=== PATIENT | female | born 1955 | race Caucasian/White ===

== ENCOUNTER 2020-12-26 19:30 | Inpatient (IN) | payer MEDICARE, OTHER ==
[~2020-12-26] VITALS: Ht 152.4 cm; Wt 108.8 kg
--- NOTE | 2020-12-26 19:34 | PHYS DOC ---
Past History Past Medical History: Anxiety, Arthritis, CAD, COPD, Diabetes, High Cholesterol, Heart Disease, Hypertension Past Surgical History: Angioplasty General Adult HPI: HPI: ".. I just ... can't catch... my breath... I... got .... COPD..... normally.... only need two ....of oxygen.... at night..... visiting... from [place]...........getting worse.....last three days... Patient is a 65 year old female who presents with above hx and complaints of dyspnea. [facility] for possible cardiac evaluation. Patient extremely dyspneic on arrival. Has had a breathing treatment prior. Patient [id number] advised patient had been getting worse the last 3 days. Increased dyspnea and fatigue. Patient does have home oxygen which he uses 2 L at night. Recent travel from [facility] to visit with son and [id number] here in [place]. Patient denies any specific ill contacts. No recent changes in meds. Patient has past history of COPD, CHF and coronary artery disease with a stent 20 years ago. Patient has history of hypertension, diabetes and dysrhythmia in the past. No ill family members at [place]. Review of Systems: Review of Systems: Constitutional: Denies fever or chills Eyes: Denies change in visual acuity HENT: Denies nasal congestion or sore throat Respiratory: Complains of cough and shortness of breath Cardiovascular: Complaints of chest pain and ankle edema GI: Denies abdominal pain, nausea, vomiting, bloody stools or diarrhea : Denies dysuria Musculoskeletal: Denies back pain or joint pain Integument: Denies rash Neurologic: Denies headache, focal weakness or sensory changes Endocrine: Denies polyuria or polydipsia Lymphatic: Denies swollen glands Psychiatric: Denies depression or anxiety Family History: Family History: Noncontributory to presentation Current Medications: Current Meds: See nursing for home meds Allergies: Allergies: No known drug allergies Physical Exam: PE: Constitutional: Well developed, well nourished, no acute distress, non-toxic appearance. [] HENT: Normocephalic, atraumatic, bilateral external ears normal, oropharynx moist, no oral exudates, nose normal. [] Eyes: PERRLA, EOMI, conjunctiva normal, no discharge. [] Neck: Normal range of motion, no tenderness, supple, no stridor. [] Cardiovascular:Heart rate regular rhythm, no murmur [] Lungs & Thorax: Bilateral breath sounds clear to auscultation [] Abdomen: Bowel sounds normal, soft, no tenderness, no masses, no pulsatile masses. [] Skin: Warm, dry, no erythema, no rash. [] Back: No tenderness, no CVA tenderness. [] Extremities: No tenderness, no cyanosis, no clubbing, ROM intact, no edema. [] Neurologic: Alert and oriented X 3, normal motor function, normal sensory function, no focal deficits noted. [] Psychologic: Affect normal, judgement normal, mood normal. [] EKG: EKG: My interpretation EKG shows a sinus rhythm at 75 bpm. Does have a slightly prolonged QT interval at 430 ms and a QTC area interval at 483 ms. No findings of acute STEMI of contralateral changes. [] Radiology/Procedures: Radiology/Procedures: [] [address] [place] [address] IMAGING REPORT Signed PATIENT: ANDREW TRACY ACCOUNT: [id number] : 1955 LOCATION: ER AGE: 65 SEX: F EXAM STATUS: REG ER ORD. PHYSICIAN: SATYA RECINOS MD REASON: dyspnea PROCEDURE: PORTABLE CHEST 1V AP chest. HISTORY: Dyspnea AP view was taken of the chest. Patient's size limits the study, the left lung base is not optimally evaluated. Heart is upper normal in size or mildly prominent. There is no definite effusion. Right lung is free of acute infiltrates. IMPRESSION: 1. Mild cardiac enlargement. 2. Left lung base poorly evaluated but no definite infiltrates. Electronically signed by: Xander Walter MD (12/26/2020 8:08 PM) [facility] DICTATED AND SIGNED BY: XANDER WALTER MD DATE: 12/26/202006 CC: SATYA RECINOS MD; PCP,UNKNOWN ~MTH0 0 Heart Score: C/O Chest Pain: Yes HEART Score for Chest Pain: HEART Score for Chest Pain Response (Comments) Value History Slighlty/Non-Suspicious 0 ECG Normal 0 Age > 65 2 Risk Factors 1 or 2 Risk Factors 1 Troponin < Normal Limit 0 Total 3 Risk Factors: Risk Factors: DM, Current or recent (<one month) smoker, HTN, HLP, family history of CAD, obesity. Risk Scores: Score 0 - 3: 2.5% MACE over next 6 weeks - Discharge Home Score 4 - 6: 20.3% MACE over next 6 weeks - Admit for Clinical Observation Score 7 - 10: 72.7% MACE over next 6 weeks - Early Invasive Strategies Course & Med Decision Making: Course & Med Decision Making Pertinent Labs and Imaging studies reviewed. (See chart for details) Discussed presentation, testing and tx plan with Aram Hdez. Admit with cardiology consult. Impression: 1. Dyspnea 2. COPD exacerbation 3. CHF-diastolic dysfunction BNP 3,147 4. Mild leukocytosis 12.4 5. Elevated D-dimer 0.83 6. Accelerated HTN 7. Diabetes glucose 210 8. Hypoxia on Room Air [] Dragon Disclaimer: Dragon Disclaimer: This electronic medical record was generated, in whole or in part, using a voice recognition dictation system. Departure Departure: Referrals: PCP,UNKNOWN (PCP) Dragon Disclaimer This chart was dictated in whole or in part using Voice Recognition software in a busy, high-work load, and often noisy Emergency Department environment. It may contain unintended and wholly unrecognized errors or omissions. SATYA RECINOS MD Dec 26, 2020 19:34
[2020-12-26] MEDS ORDERED: IV RINGERS SOLUTION,LACTATED 1,000 ML IV SCH (19:45)
[2020-12-26] MEDS ORDERED: AZITHROMYCIN 250 MG TABLET. PO ONE (19:45)
[2020-12-26] MEDS ORDERED: methylPREDNISolone SOD SUCC PF 125 MG/2 ML VIAL. IV ONE (19:45)
[2020-12-26 20:07] LABS: CALCIUM 8.7 mg/dL (8.5-10.1); CREATININE 1.1 mg/dL (0.6-1.0); GFR 49.5
--- NOTE | 2020-12-26 20:10 | RAD ---
AP chest. HISTORY: Dyspnea AP view was taken of the chest. Patient's size limits the study, the left lung base is not optimally evaluated. Heart is upper normal in size or mildly prominent. There is no definite effusion. Right shira ng is free of acute infiltrates. IMPRESSION: 1. Mild cardiac enlargement. 2. Left lung base poorly evaluated but no definite infiltrates. Electronically signed by: Xander Walter MD (12/26/2020 8:08 PM) [facility]
[2020-12-26 20:27] LABS: ALBUMIN 3.2 g/dL (3.4-5.0); C REACTIVE PROTEIN 6.8 mg/L (0-3.3); DIRECT BILIRUBIN 0.2 mg/dL (0.0-0.2); MAGNESIUM 1.6 mg/dL (1.8-2.4); TOTAL BILIRUBIN 0.5 mg/dL (0.2-1.0)
[2020-12-26 20:28] LABS: BASO # 0.1 x10^3/uL (0.0-0.2); BASO % 1 % (0-3); EOS # 0.4 x10^3/uL (0.0-0.7); EOS % 3 % (0-3); HEMATOCRIT 42.4 % (36.0-47.0); HEMOGLOBIN 12.9 g/dL (12.0-15.5); LYMPH # 1.8 x10^3/uL (1.0-4.8); LYMPH % 15 % (24-48); MEAN CORPUSCULAR HEMOGLOBIN 25 pg (25-35); MEAN CORPUSCULAR HGB CONC 30 g/dL (31-37); MEAN CORPUSCULAR VOLUME 82 fL (79-100); MONO # 0.6 x10^3/uL (0.0-1.1); MONO % 5 % (0-9); NEUT # 9.5 x10^3uL (1.8-7.7); NEUT % 76 % (31-73); PLATELET COUNT 244 x10^3/uL (140-400); RED BLOOD COUNT 5.18 x10^6/uL (3.50-5.40); RED CELL DISTRIBUTION WIDTH 15.1 % (11.5-14.5); WHITE BLOOD COUNT 12.4 x10^3/uL (4.0-11.0)
[2020-12-26] MEDS ORDERED: FUROSEMIDE 40 MG/4 ML VIAL IVP ONE (20:45)
[2020-12-26] MEDS ORDERED: IPRATRPIUM/ALBUTEROL 0.5/2.5MG 3 ML NEBU. ONE (21:02)
[2020-12-26] MEDS ORDERED: ONDANSETRON PF 4 MG/2 ML VIAL. IVP PRN (21:45)
[2020-12-26] MEDS ORDERED: ACETAMINOPHEN 325 MG TABLET PO PRN (21:45)
[2020-12-26] MEDS ORDERED: ENOXAPARIN ** NOTE DOSE ** SYRINGE SQ ONE (22:00)
[2020-12-26] MEDS ORDERED: ANTI-COAG MONITOR BY PHARMACY. MC PRN (22:15)
[2020-12-26] MEDS: NITROGLYCERIN OINT 1 GM PACKET. TP SCH (22:37)
[2020-12-26 22:51] LABS: BILIRUBIN,URINE NEG (NEG); CLARITY,URINE CLEAR; COLOR,URINE YELLOW; GLUCOSE,URINE NEG (NEG); NITRITE,URINE NEG (NEG); UROBILINOGEN,URINE 0.2 mg/dL (0.2 mg/dL)
[2020-12-26 22:52] LABS: BACTERIA,URINE 0 /HPF (0-FEW); RBC,URINE OCC /HPF (0-2); SQUAMOUS EPITHELIAL CELL,UR OCC /LPF; WBC,URINE OCC /HPF (0-4)
[2020-12-26] MEDS ORDERED: INSU100I41 SQ ×2 (23:12)
[2020-12-26] MEDS ORDERED: FURO40TA4 PO (23:12)
[2020-12-26] MEDS ORDERED: SITA1TAB7 PO (23:12)
[2020-12-26] MEDS ORDERED: LEVO125T5 PO (23:12)
[2020-12-26] MEDS ORDERED: FLUT1DIS3 IH (23:12)
[2020-12-26] MEDS ORDERED: SIMV80TA17 PO (23:12)
[2020-12-26] MEDS ORDERED: METO100T7 PO (23:12)
[2020-12-26] MEDS ORDERED: FLUO60TA PO (23:12)
[2020-12-26] MEDS ORDERED: MELO15TA23 PO (23:12)
[2020-12-26] MEDS ORDERED: DIPH25CA58 PO (23:12)
[2020-12-26] MEDS ORDERED: PHEN37.53 PO (23:12)
[2020-12-26] MEDS ORDERED: KETO15CR2 TP (23:12)
[2020-12-26] MEDS ORDERED: GABA-586 PO (23:12)
[2020-12-26] MEDS ORDERED: ASPI-630 PO (23:12)
[2020-12-26 23:30] VITALS: BP 170/69
[2020-12-26 23:47] LABS: BGAS PH 7.4 (7.35-7.45)
--- NOTE | 2020-12-27 00:24 | NUR ---
PT ADMITTED TO [facility] VIA EMS ACCOMPANIED BY ER STAFF. PT AMBULATED FROM [place] TO BED INDEPENDENTLY. PT AOX4. VS OBTAINED. PT HAD NO COMPLAINTS OF PAIN AT TIME OF ASSESSMENT. PT SWABBED FOR COVID DOWN IN ED. AFTER FURTHER QUESTIONING PT INFORMED THIS NURSE THAT SHE HAS HAD BOTH PFIZER COVID VACCINES AND WAS PREVIOUSLY SWABBED OUTSIDE OF THIS HOSPITAL W/ NEGATIVE RESULT. POC DISCUSSED W/ VERBAL UNDERSTANDING. CALL LIGHT IN REACH. WILL CONTINUE TO MONITOR.
[2020-12-27 00:25] VITALS: BP 166/74
[2020-12-27] MEDS: IPRATRPIUM/ALBUTEROL 0.5/2.5MG 3 ML NEBU. NEB SCH ×4 (05:37→18:51)
[2020-12-27 05:55] LABS: CALCIUM 8.2 mg/dL (8.5-10.1); CREATININE 1.2 mg/dL (0.6-1.0); GFR 44.8
[2020-12-27 06:00] LABS: BASO # 0.1 x10^3/uL (0.0-0.2); BASO % 1 % (0-3); EOS % 0 % (0-3); HEMATOCRIT 41.5 % (36.0-47.0); HEMOGLOBIN 12.8 g/dL (12.0-15.5); LYMPH # 0.5 x10^3/uL (1.0-4.8); LYMPH % 5 % (24-48); MEAN CORPUSCULAR HEMOGLOBIN 25 pg (25-35); MEAN CORPUSCULAR HGB CONC 31 g/dL (31-37); MEAN CORPUSCULAR VOLUME 81 fL (79-100); MONO # 0.1 x10^3/uL (0.0-1.1); MONO % 1 % (0-9); NEUT # 8.4 x10^3uL (1.8-7.7); NEUT % 93 % (31-73); PLATELET COUNT 200 x10^3/uL (140-400); RED CELL DISTRIBUTION WIDTH 14.9 % (11.5-14.5); WHITE BLOOD COUNT 9.1 x10^3/uL (4.0-11.0)
[2020-12-27] MEDS ORDERED: MELA3TAB19 PO (06:00)
[2020-12-27 06:08] VITALS: BP 160/72
[2020-12-27] MEDS ORDERED: DEXTROSE 50% 25 GM / 50ML DISP.SYRIN. IV PRN ×2 (06:15→13:00)
[2020-12-27] MEDS: LEVOTHYROXINE 125 MCG TABLET PO SCH (06:23)
[2020-12-27] MEDS ORDERED: LEVOTHYROXINE 125 MCG TABLET PO SCH (06:30)
[2020-12-27] MEDS ORDERED: INSULIN NPH/REG HUM 70/30 300 UNITS/3 ML VIAL. SQ SCH ×2 (07:30→16:30)
--- NOTE | 2020-12-27 07:47 | PDOC2 ---
CARDIAC CONSULT DATE OF CONSULT DOS: DATE: 12/27/20 TIME: 07:43 REASON FOR CONSULT Reason for Consult CHF HTN REFERRING PHYSICIAN Referring Physician Dr. Roy SOURCE Source: Chart review, Patient HPI History of Present Illness This is a 65 yo female who presented secondary to shortness of breath. Is here from [place], [place] visiting son. Has a history of COPD, CHD, and CAD s/p PCI/stent approximately 20 years ago. [address] with Dr. Bryan Gamez in [place]. Over the last week, has been more short of breath. Has progressively worsened. Was significantly more short of breath and wheezy yesterday so she came to the ED for further evaluation and treatment. She denies any dizziness, diaphoresis, palpitations, chest pain, or nausea/vomiting. Has had some mild LE edema. Reports compliance with medications. PAST MEDICAL HISTORY Cardiovascular: CAD, CHF, HTN Pulmonary: COPD Musculoskeletal: Osteoarthritis Endocrine: Diabetes, Hypothyroidism PAST SURGICAL HISTORY Past Surgical History: Cholecystectomy, Other (PCI/stent) FAMILY HISTORY Family History: Cancer SOCIAL HISTORY Smoke: Quit (1978) ALCOHOL: none Drugs: None Lives: Alone (normally lives at home alone, but is in town visiting son) CURRENT MEDICATIONS Current Medications Current Medications Lactated Ringer's 1,000 ml @ 75 mls/hr [id number] IV Last administered on 12/26/20at 20:30; Start 12/26/20 at 19:45; Stop 12/27/20 at 09:04 Methylprednisolone Sodium Succinate (SOLU-Medrol 125MG VIAL) 125 mg 1X ONCE IV Last administered on 12/26/20at 20:28; Start 12/26/20 at 19:45; Stop 12/26/20 at 20:11; Status DC Azithromycin (Zithromax) 500 mg 1X ONCE PO Last administered on 12/26/20at 20:29; Start 12/26/20 at 19:45; Stop 12/26/20 at 20:11; Status DC Furosemide (Lasix) 40 mg 1X ONCE IVP Last administered on 12/26/20at 21:48; Start 12/26/20 at 20:45; Stop 12/26/20 at 20:48; Status DC Albuterol/ Ipratropium (Duoneb) 3 ml STK-MED ONCE .ROUTE ; Start 12/26/20 at 21:02; Stop 12/26/20 at 21:03; Status DC Enoxaparin Sodium (Lovenox 60mg Syringe) 60 mg 1X ONCE SQ Last administered on 12/27/20at 01:16; Start 12/26/20 at 22:00; Stop 12/26/20 at 22:01; Status DC Ondansetron HCl (Zofran) 4 mg PRN Q4HRS PRN IVP NAUSEA/VOMITING; Start 12/26/20 at 21:45; Stop 12/27/20 at 21:44 Acetaminophen (Tylenol) 650 mg PRN Q4HRS PRN PO FEVER > 100.3'F; Start 12/26/20 at 21:45; Stop 12/27/20 at 21:44 Albuterol/ Ipratropium (Duoneb) 3 ml RTQID NEB Last administered on 12/27/20at 05:37; Start 12/27/20 at 08:00; Stop 12/28/20 at 07:59 Enoxaparin Sodium (Lovenox 60mg Syringe) 60 mg BID SQ ; Start 12/27/20 at 09:00; Stop 12/28/20 at 08:59 Nitroglycerin (Nitro-Bid Oint) 0.5 inch TID TP Last administered on 12/26/20at 22:37; Start 12/26/20 at 22:00; Stop 12/28/20 at 21:59 Aspirin (Aspirin Chewable) 81 mg DAILYWBKFT PO ; Start 12/27/20 at 08:00 Furosemide (Lasix) 40 mg BID92 IVP ; Start 12/27/20 at 09:00 Albuterol/ Ipratropium (Duoneb) 3 ml QID NEB ; Start 12/27/20 at 09:00; Status UNV Azithromycin (Zithromax) 250 mg DAILY PO ; Start 12/27/20 at 09:00 Info (Anti-Coagulation Monitoring By Pharmacy) 1 each PRN DAILY PRN MC SEE COMMENTS; Start 12/26/20 at 22:15 Aspirin (Aspirin Chewable) 81 mg DAILY PO ; Start 12/27/20 at 09:00 Diphenhydramine HCl (Benadryl) 25 mg HS PO ; Start 12/27/20 at 21:00 Gabapentin (Neurontin) 300 mg HS PO ; Start 12/27/20 at 21:00 Levothyroxine Sodium (Synthroid) 125 mcg DAILY06 PO ; Start 12/27/20 at 06:30; Stop 12/27/20 at 06:16; Status DC Meloxicam (Mobic) 15 mg DAILY PO ; Start 12/27/20 at 09:00 Fluoxetine HCl (PROzac) 60 mg DAILY PO ; Start 12/27/20 at 09:00 Metoprolol Tartrate (Lopressor) 100 mg BID PO ; Start 12/27/20 at 09:00 Simvastatin (Zocor) 80 mg QHS PO ; Start 12/27/20 at 21:00 Insulin Human Lispro (HumaLOG) 0-9 UNITS TIDWMEALS SQ ; Start 12/27/20 at 08:00 Dextrose (Dextrose 50%-Water Syringe) 12.5 gm PRN Q15MIN PRN IV SEE COMMENTS; Start 12/27/20 at 06:15 Insulin Human Isoph/Insulin Regular (HumuLIN 70-30 VIAL) 10 units TIDBFRMEAL SQ ; Start 12/27/20 at 07:30 Levothyroxine Sodium (Synthroid) 125 mcg DAILY06 PO Last administered on 12/27/20at 06:23; Start 12/27/20 at 06:30 Active Scripts Active Reported Melatonin 3 Mg Tablet.er 1 Tab PO QHS 30 Days Benadryl (Diphenhydramine Hcl) 25 Mg Capsule 25 Mg PO HS Gabapentin (Gabapentin) 300 Mg Capsule 300 Mg PO HS Janumet 50-500 Mg Tablet (Sitagliptin Phos/Metformin Hcl) 1 Each Tablet 1 Each PO DAILYWSUP Novolin 70-30 Flexpen (Insulin NPH Hum/Reg Insulin Hm) 100 Unit/1 Ml Insuln.pen 15-20 Unit SQ DAILYWSUP Novolin 70-30 Flexpen (Insulin NPH Hum/Reg Insulin Hm) 100 Unit/1 Ml Insuln.pen 10 Unit SQ DAILY08 Ketoconazole 15 Gm Cream..g. 1 Ac TP DAILY Phentermine Hcl 37.5 Mg Capsule 37.5 Mg PO DAILY Levothyroxine Sodium 125 Mcg Tablet 125 Mcg PO DAILYAC Fluoxetine Hcl 60 Mg Tablet 60 Mg PO DAILY Simvastatin 80 Mg Tablet 80 Mg PO DAILY Furosemide 40 Mg Tablet 40 Mg PO DAILY Aspirin 81 Mg Tab.chew 81 Mg PO DAILY Metoprolol Tartrate 100 Mg Tablet 100 Mg PO BID Advair 250-50 Diskus (Fluticasone/Salmeterol) 1 Each Disk.w.dev 1 Puff IH BID Meloxicam 15 Mg Tablet 15 Mg PO DAILY ALLERGIES Allergies: Coded Allergies: No Known Allergies (Verified Allergy, Unknown, 12/26/20) ROS Review of Systems 14 point ROS conducted with pertinent positives noted above in HPI PHYSICAL EXAM General: Alert, Oriented X3, Cooperative HEENT: Atraumatic Lungs: Other (diminished bases) Heart: Regular rate Abdomen: Soft, No tenderness, Other (obese ) Extremities: No edema, Normal pulses Skin: No breakdown Neuro: Normal speech, Sensation intact Psych/Mental Status: Mental status NL, Mood NL MUSCULOSKELETAL: Osteoarthritic changes both hands VITALS Vital Signs Vital Signs Date Time Temp Pulse Resp B/P (MAP) Pulse Ox O2 Delivery O2 Flow Rate FiO2 12/27/20 06:08 97.4 70 20 160/72 (101) 94 Nasal Cannula 2.0 LABS LABS Laboratory Tests Test 12/26/20 19:37 12/26/20 19:42 12/26/20 22:05 12/26/20 22:40 Blood Gas pH 7.40 (7.35-7.45) Blood Gas PCO2 41 mmHg (35-45) Blood Gas PO2 58 mmHg (80-100) Blood Gas HCO3 25 mmol/L (22-26) Arterial Bld O2 Saturation (Calc) 90 % (92-99) FiO2 21 % White Blood Count 12.4 x10^3/uL (4.0-11.0) Red Blood Count 5.18 x10^6/uL (3.50-5.40) Hemoglobin 12.9 g/dL (12.0-15.5) Hematocrit 42.4 % (36.0-47.0) Mean Corpuscular Volume 82 fL (79-100) Mean Corpuscular Hemoglobin 25 pg (25-35) Mean Corpuscular Hemoglobin Concent 30 g/dL (31-37) Red Cell Distribution Width 15.1 % (11.5-14.5) Platelet Count 244 x10^3/uL (140-400) Neutrophils (%) (Auto) 76 % (31-73) Lymphocytes (%) (Auto) 15 % (24-48) Monocytes (%) (Auto) 5 % (0-9) Eosinophils (%) (Auto) 3 % (0-3) Basophils (%) (Auto) 1 % (0-3) Neutrophils # (Auto) 9.5 x10^3uL (1.8-7.7) Lymphocytes # (Auto) 1.8 x10^3/uL (1.0-4.8) Monocytes # (Auto) 0.6 x10^3/uL (0.0-1.1) Eosinophils # (Auto) 0.4 x10^3/uL (0.0-0.7) Basophils # (Auto) 0.1 x10^3/uL (0.0-0.2) Prothrombin Time 10.8 SEC (9.4-11.4) Prothromb Time International Ratio 1.0 (0.9-1.1) Activated Partial Thromboplast Time 25 SEC (23-33) D-Dimer (Amaris) 0.83 mg/L (0.00-0.50) Sodium Level 141 mmol/L (136-145) Potassium Level 4.0 mmol/L (3.5-5.1) Chloride Level 104 mmol/L (98-107) Carbon Dioxide Level 30 mmol/L (21-32) Anion Gap 7 (6-14) Blood Urea Nitrogen 19 mg/dL (7-20) Creatinine 1.1 mg/dL (0.6-1.0) Estimated GFR (Cockcroft-Gault) 49.5 Glucose Level 210 mg/dL (70-99) Calcium Level 8.7 mg/dL (8.5-10.1) Magnesium Level 1.6 mg/dL (1.8-2.4) Total Bilirubin 0.5 mg/dL (0.2-1.0) Direct Bilirubin 0.2 mg/dL (0.0-0.2) Aspartate Amino Transf (AST/SGOT) 13 U/L (15-37) Alanine Aminotransferase (ALT/SGPT) 19 U/L (14-59) Alkaline Phosphatase 85 U/L (46-116) Creatine Kinase 60 U/L (26-192) Troponin I Quantitative < 0.017 ng/mL (0-0.055) < 0.017 ng/mL (0-0.055) C-Reactive Protein 6.8 mg/L (0-3.3) DB-Kri-P-Type Natriuretic Peptide 3147 pg/mL (0-124) Total Protein 7.0 g/dL (6.4-8.2) Albumin 3.2 g/dL (3.4-5.0) Lipase 56 U/L (73-393) Urine Collection Type Unknown Urine Color Yellow Urine Clarity Clear Urine pH 6.0 Urine Specific [place] 1.020 Urine Protein 30 mg/dl (NEG-TRACE) Urine Glucose (UA) Neg mg/dL (NEG) Urine Ketones (Stick) Trace mg/dL (NEG) Urine Blood Neg (NEG) Urine Nitrite Neg (NEG) Urine Bilirubin Neg (NEG) Urine Urobilinogen Dipstick 0.2 mg/dL (0.2 mg/dL) Urine Leukocyte Esterase Neg (NEG) Urine RBC Occ /HPF (0-2) Urine WBC Occ /HPF (0-4) Urine Squamous Epithelial Cells Occ /LPF Urine Bacteria 0 /HPF (0-FEW) Test 12/27/20 01:25 12/27/20 05:30 12/27/20 07:35 Troponin I Quantitative < 0.017 ng/mL (0-0.055) White Blood Count 9.1 x10^3/uL (4.0-11.0) Red Blood Count 5.10 x10^6/uL (3.50-5.40) Hemoglobin 12.8 g/dL (12.0-15.5) Hematocrit 41.5 % (36.0-47.0) Mean Corpuscular Volume 81 fL (79-100) Mean Corpuscular Hemoglobin 25 pg (25-35) Mean Corpuscular Hemoglobin Concent 31 g/dL (31-37) Red Cell Distribution Width 14.9 % (11.5-14.5) Platelet Count 200 x10^3/uL (140-400) Neutrophils (%) (Auto) 93 % (31-73) Lymphocytes (%) (Auto) 5 % (24-48) Monocytes (%) (Auto) 1 % (0-9) Eosinophils (%) (Auto) 0 % (0-3) Basophils (%) (Auto) 1 % (0-3) Neutrophils # (Auto) 8.4 x10^3uL (1.8-7.7) Lymphocytes # (Auto) 0.5 x10^3/uL (1.0-4.8) Monocytes # (Auto) 0.1 x10^3/uL (0.0-1.1) Eosinophils # (Auto) 0.0 x10^3/uL (0.0-0.7) Basophils # (Auto) 0.1 x10^3/uL (0.0-0.2) Sodium Level 137 mmol/L (136-145) Potassium Level 4.0 mmol/L (3.5-5.1) Chloride Level 99 mmol/L (98-107) Carbon Dioxide Level 28 mmol/L (21-32) Anion Gap 10 (6-14) Blood Urea Nitrogen 21 mg/dL (7-20) Creatinine 1.2 mg/dL (0.6-1.0) Estimated GFR (Cockcroft-Gault) 44.8 Glucose Level 442 mg/dL (70-99) Calcium Level 8.2 mg/dL (8.5-10.1) Glucose (Fingerstick) 428 mg/dL (70-99) ASSESSMENT/PLAN Assessment/Plan 1. Acute on chronic respiratory failure with a/c CHF and AE COPD 2. Acute on chronic probable diastolic CHF; s/p IV diuresis 3. CAD s/p PCI/stents. Clinically stable. Follows with Dr. Bryan Gamez in [place], [place]. Reports stress test a couple of years ago. Unsure when most recent echocardiogram was conducted 4. Accelerated hypertension; remains mildly elevated 5. Hyperlipidemia; statin 6. Diabetes, II 7. Hypothyroidism Recommendations Mild diuresis Lung optimization Secondary prevention; ASA/statin, BB therapy Home antiHTN therapy resumed Add amlodipine for better BP control Patient hoping to be back home in [place] by this weekend. Patient to follow up with her primary cardiology upon discharge Discussed need for outpatient echocardiogram and stress testing if none recently Supportive care MAUDE HOWE APRN Dec 27, 2020 07:47
[2020-12-27] MEDS: ASPIRIN CHEWABLE 81 MG TABLET. PO SCH ×2 (07:55→08:57)
[2020-12-27] MEDS ORDERED: ASPIRIN CHEWABLE 81 MG TABLET. PO SCH (08:00)
--- NOTE | 2020-12-27 08:08 | NUR ---
Patient admitted through ED, was swabbed for COVID due to SOA. Pt has received both COVID vaccines, Pfizer, last dose received 12/13/2020. Pt also reports being swabbed outside the hospital with a negative result. Per discussion w/ELIJAH Hernandes and shift supervisors, patient is removed from isolation.
--- NOTE | 2020-12-27 08:41 | EKG ---
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
[2020-12-27] MEDS: FLUoxetine HCL 20 MG CAPSULE PO SCH (08:56)
[2020-12-27] MEDS: AZITHROMYCIN 250 MG TABLET. PO SCH (08:56)
[2020-12-27] MEDS: METOPROLOL TART IMMED RELEASE 50 MG TABLET PO SCH ×2 (08:58→20:26)
[2020-12-27] MEDS ORDERED: IPRATRPIUM/ALBUTEROL 0.5/2.5MG 3 ML NEBU. NEB SCH (09:00)
[2020-12-27] MEDS ORDERED: MELOXICAM 15 MG TABLET. PO SCH (09:00)
[2020-12-27] MEDS ORDERED: FUROSEMIDE 40 MG/4 ML VIAL IVP SCH (09:00)
[2020-12-27] MEDS: NITROGLYCERIN OINT 1 GM PACKET. TP SCH ×2 (09:00→14:00)
[2020-12-27] MEDS: INSULIN LISPRO 300 UNITS/3 ML VIAL. SQ SCH ×3 (09:18→14:12)
[2020-12-27] MEDS: ENOXAPARIN ** NOTE DOSE ** SYRINGE SQ SCH ×2 (09:19→20:25)
[2020-12-27] MEDS ORDERED: amLODIPine BESYLATE 5 MG TABLET PO SCH (09:45)
[2020-12-27 11:00] VITALS: BP 175/75
[2020-12-27] MEDS ORDERED: INSULIN REGULAR VIAL 100 UNIT in IV NORMAL SALINE 100ML 100 ML IV PRN (13:00)
[2020-12-27 13:04] LABS: ALBUMIN/GLOBULIN RATIO 0.9 (1.0-1.7); CALCIUM 8.2 mg/dL (8.5-10.1); CREATININE 1.6 mg/dL (0.6-1.0); GFR 32.2; TOTAL BILIRUBIN 0.4 mg/dL (0.2-1.0); TOTAL PROTEIN 6.5 g/dL (6.4-8.2)
[2020-12-27] MEDS ORDERED: MELATONIN 3 MG TABLET PO PRN (14:00)
--- NOTE | 2020-12-27 14:10 | HP ---
ADMIT DATE: 12/26/2020 HISTORY OF PRESENT ILLNESS: The patient is a 65-year-old female patient who presented to the Emergency Room with a complaint of shortness of breath. She apparently has been complaining of this shortness of breath for over the last week. This symptom has been worsened. She has also what seems to be orthopnea. She stated that she has been using multiple pillows at nighttime. She also had chest tightness and wheezing, but denied any chest pain. Denied any nausea or vomiting. Denied any diaphoresis, dizziness, and denied any swelling of the legs, although apparently she did have mild lower extremity edema initially when she arrived and the patient stated that she has been compliant with all her medication. She was extensively investigated in the Emergency Room and has had lab work and imaging studies and was diagnosed with acute on chronic respiratory failure with acute on chronic congestive heart failure and COPD exacerbation. She apparently also had acute on chronic probably diastolic congestive heart failure and was treated with IV diuretics. She has had coronary artery disease, had a stent deployed about 20 years ago, and follows with Dr. Bryan Ko in [place], [place]. She had a stress test done 2 years ago and was normal according to her. Her blood sugar was also elevated; and with steroids, her blood sugar even became worse and was admitted for inpatient treatment and to consult the it technical specialist. PAST MEDICAL HISTORY: Significant for hypertension, hyperlipidemia, coronary artery disease, hypothyroidism, type 2 diabetes mellitus, and generalized osteoarthritis. She also had morbid obesity and obstructive sleep apnea. PAST SURGICAL HISTORY: Significant for PCI and stent deployment, had had cholecystectomy, tonsillectomy. FAMILY HISTORY: Significant for the fact that one of her sisters at age of 67 because of throat cancer and breast cancer, one younger sister has breast cancer, one brother still alive at the age of 73 and has had myocardial infarction and underwent coronary artery bypass graft surgery. Mother of lung cancer and father of liver cancer. SOCIAL HISTORY: She is , has 2 daughters and 1 son. She apparently smoked for 5 years and quit smoking in 1978 after she was told that her mother is dying of lung cancer. She drinks alcohol very occasionally. She is retired, used to work for [employer] for about 21 years. REVIEW OF SYSTEMS: The patient denied any blurring of vision, cataract, glaucoma or macular degeneration. Denied any earache, tinnitus, or sensorineural deafness. Denied any nosebleeds, stuffy nose, or postnasal drip. Denied any sore throat, sore tongue, toothache, hoarseness of voice or difficulty swallowing. Denied any nausea, vomiting, diarrhea, or constipation. Denied any hematemesis, melena or hematochezia. Denied any dysuria or frequency. Did complain of polyuria and nocturia. She also denied any chest pain. Obviously had shortness of breath and orthopnea. She did complain of marked dryness of her mouth, but denied any chills, rigors, or fever. Denied any dizziness, lightheadedness, or vertigo. ALLERGIES: She has no known drug allergies. MEDICATIONS: She is currently on following medications: The patient is currently on diphenhydramine 25 mg at bedtime, simvastatin 80 mg at bedtime, metoprolol tartrate 100 mg twice a day, aspirin 81 mg once a day, meloxicam 15 mg daily, gabapentin 300 mg at bedtime, fluoxetine 60 mg daily, phentermine 37.5 mg daily, furosemide 40 mg daily, Advair Diskus 250/50 one inhalation twice a day, sitagliptin/metformin for Janumet 50/500 one tablet daily. She is on Novolin 70/30, 10 units subcutaneous daily and Novolin 70/30, 15 units at bedtime. She is on levothyroxine 125 mcg once a day, ketoconazole 15 cream applied topically daily, and melatonin 3 mg at bedtime. PHYSICAL EXAMINATION: GENERAL: On arrival to the Emergency Room, the patient was clearly tachypneic, but there was no pallor, jaundice, or cyanosis. No lymphadenopathy, no thyromegaly. No jugular venous distention. Mild bilateral lower limb edema. VITAL SIGNS: Her heart rate was 71, blood pressure was 169/125. Her temperature was 98, respiratory rate was 32, and oxygen saturation was 91% on room air. HEAD, EYES, EARS, NOSE AND THROAT: Showed normocephalic, atraumatic. NECK: Supple. HEART: Showed normal first and second heart sounds. No gallop, rub or murmur. CHEST: Showed bilateral breath sounds and there is no wheezing, crepitation or crackles. ABDOMEN: Distended, soft, nontender. No guarding or rigidity. No organomegaly. All hernial orifices intact. Bowel sounds normal. NEUROLOGIC: She is awake, alert, responding appropriately. All cranial nerves intact. EXTREMITIES: She moves extremities without difficulty. LABORATORY DATA: Her lab work on arrival to the Emergency Room showed a white cell count of 12,400, hemoglobin 13, hematocrit 42, MCV 82 and platelet count 244,000 with normal manual differential. Her chemistry showed a serum sodium 137, potassium 4, chloride 99, bicarbonate 28, anion gap of 10, BUN 21, creatinine 1.2, estimated GFR was 44, her blood glucose was 442, calcium was 8.2 and troponin were less than 0.017. Her prothrombin time, INR and aPTT are normal. D-dimer was slightly high at 0.83. Her blood gases showed a pH of 7.40, pCO2 of 41, pO2 of 58, bicarbonate 25, and oxygen saturation was 90% on room air. Her chest x-ray showed that the patient's size limits the study. The left lung base is not optimally evaluated. Heart is upper limit of normal in size and mildly prominent. There is no definite effusion. The right lung is free of acute infiltrate. ASSESSMENT: 1. The patient was admitted with [id number] hypoxic respiratory failure secondary to uddim-rs-cchfvnu diastolic congestive heart failure. 2. Acute diastolic congestive heart failure, treated with IV diuretics. 3. Coronary artery disease, status post PCI with stent deployment about 20 years ago. The patient is chest pain-free. She follows with her it technical specialist at [facility] in [place]. She had a stress test done about 2 years ago and was normal according to her. 4. Hypertension, remains mildly elevated. 5. Hyperlipidemia, on statin. 6. Type 2 diabetes, poorly controlled. 7. Hypothyroidism. Plan: Given the elevation of blood sugar, I will discontinue her meloxicam and we held her phentermine and furosemide. Continue with IV Lasix. In fact, I have increased her insulin this morning. I switched her to insulin sliding scale before meals. We will follow her closely and decide the further management accordingly. SOFIA ROSE MD DR: JENNIFER/lincoln JOB#: [id number] / [id number]
[2020-12-27 16:12] VITALS: BP 122/45
[2020-12-27 16:13] LABS: THYROID STIM HORMONE (TSH) 2.809 uIU/mL (0.358-3.740)
--- NOTE | 2020-12-27 16:19 | NUR ---
Respiratory was not able to get out of the ER told, called and asked nurse to do treatment. Also asked if patient could be changed to prn. Neither were done and that is why non administered was documented
--- NOTE | 2020-12-27 18:12 | PN ---
DATE: 12/27/2020 SUBJECTIVE: The patient is resting, slightly propped up in bed, in no apparent distress. She is feeling generally much improved, although she did complain of insomnia and that she could not sleep last night. PHYSICAL EXAMINATION: GENERAL: When I examined her this afternoon, she was resting slightly propped up in bed, in no apparent respiratory distress. She was pale, but no jaundice, cyanosis or thyromegaly. No jugular venous distention or limb edema. VITAL SIGNS: Her heart rate was 76, blood pressure was 175/75, temperature was 97.8, respiratory rate 20, and oxygen saturation was 90% on room air. HEAD, EYES, EARS, NOSE AND THROAT: Showed normocephalic, atraumatic. NECK: Supple. HEART: Showed normal first and second heart sounds. No gallop, rub or murmur. CHEST: Clear to auscultation. No crepitation or rhonchi. ABDOMEN: Distended, soft, nontender. NEUROLOGIC: She was awake, alert, responding appropriately. All cranial nerves are intact. She moves upper extremities without difficulty. LABORATORY DATA: Her lab work this morning showed serum sodium of 132, potassium 4, chloride 94, bicarbonate 26, anion gap of 12, BUN 29, creatinine 1.6, estimated GFR was 32 mL per minute. Her glucose was 710, calcium was 8.2. Total bilirubin, AST, ALT, alkaline phosphatase were normal. Total protein 6.5, albumin was 3. Her white cell count was 9,100, hemoglobin 13, hematocrit 41, MCV 81, and platelet count of 200,000 with normal manual differential. ASSESSMENT: 1. Acute on chronic hypoxic respiratory failure, likely due to acute on chronic diastolic congestive heart failure as well as chronic obstructive pulmonary disease exacerbation. 2. Acute on chronic diastolic congestive heart failure, treated with IV diuretics. 3. Coronary artery disease, status post PCI with stent deployment, clinically stable. 4. Accelerated hypertension. Blood pressure continues to be elevated. 5. Hyperlipidemia, on statin. 6. Type 2 diabetes, poorly controlled. 7. Hypothyroidism. PLAN: My plan is to start the patient on insulin drip and I am going to discontinue all the steroids. I would increase also her amlodipine to 10 mg, stop the meloxicam and monitor her closely and once her blood sugar stabilized, we will switch her back to her usual regimen and she can probably be discharged home tomorrow if she remains stable. SOFIA ROSE MD DR: JENNIFER/lincoln JOB#: [id number] / [id number]
[2020-12-27 19:49] VITALS: BP 121/71
[2020-12-27] MEDS: LACTOBACILLUS RHAMNOSUS GG 1 CAPSULE. PO SCH (20:25)
[2020-12-27] MEDS ORDERED: SIMVASTATIN 40 MG TABLET. PO SCH (21:00)
[2020-12-27] MEDS ORDERED: ATORVASTATIN CALCIUM 20 MG TABLET PO SCH (21:00)
[2020-12-27] MEDS ORDERED: GABAPENTIN 300 MG CAPSULE. PO SCH (21:00)
[2020-12-27] MEDS ORDERED: diphenhydrAMINE HCL 25 MG CAPSULE PO SCH (21:00)
[2020-12-27 22:32] VITALS: BP 122/68
[2020-12-28 05:21] VITALS: BP 132/77
[2020-12-28] MEDS: IPRATRPIUM/ALBUTEROL 0.5/2.5MG 3 ML NEBU. NEB SCH (05:55)
--- NOTE | 2020-12-28 05:55 | NUR ---
Pt says that she wants to sleep and skip the tx this early am.
[2020-12-28] MEDS: LEVOTHYROXINE 125 MCG TABLET PO SCH (06:14)
[2020-12-28] MEDS ORDERED: IPRATRPIUM/ALBUTEROL 0.5/2.5MG 3 ML NEBU. NEB PRN (07:15)
[2020-12-28] MEDS: INSULIN LISPRO 300 UNITS/3 ML VIAL. SQ SCH ×2 (08:00→12:00)
[2020-12-28] MEDS: LACTOBACILLUS RHAMNOSUS GG 1 CAPSULE. PO SCH (08:56)
[2020-12-28] MEDS: AZITHROMYCIN 250 MG TABLET. PO SCH (08:57)
[2020-12-28] MEDS: FLUoxetine HCL 20 MG CAPSULE PO SCH (08:57)
[2020-12-28] MEDS: METOPROLOL TART IMMED RELEASE 50 MG TABLET PO SCH (08:58)
[2020-12-28] MEDS: ASPIRIN CHEWABLE 81 MG TABLET. PO SCH (09:00)
[2020-12-28] MEDS ORDERED: amLODIPine BESYLATE 10 MG TABLET PO SCH (09:00)
[2020-12-28 11:15] VITALS: BP 177/95
[2020-12-28 13:06] LABS: CALCIUM 8.6 mg/dL (8.5-10.1); CREATININE 1.4 mg/dL (0.6-1.0); GFR 37.5
--- NOTE | 2020-12-28 13:22 | NUR ---
DISCHARGE NOTE Pt discharged today by Dr. Chiu. Pt given discharge paperwork. No prescriptions to be sent/filled at this time. Pt verbalized understanding of discharge paperwork and all questions were addressed. She was given an extra copy of discharge instruction and [facility] medical records phone numner to give to PCP in [place], [place]. Pt escorted out of hospital via WC and picked up by son. CC, RN
--- NOTE | 2020-12-28 15:13 | DS ---
DATE OF DISCHARGE: 12/28/2020 HOSPITAL COURSE: The patient is a 65-year-old female patient who presented to the Emergency Room with shortness of breath and acute on chronic hypoxic respiratory failure, likely due to combination of acute on chronic diastolic congestive heart failure with chronic obstructive pulmonary disease exacerbation. The patient was treated with IV diuretics, was also treated with IV Lasix as well as Solu-Medrol and she did actually very well. She has had no more shortness of breath. No chest tightness or wheezing. OBJECTIVE: GENERAL: When I saw her this morning, she looked well and was clearly in no apparent respiratory distress. No pallor, jaundice, cyanosis or thyromegaly. No jugular venous distention or limb edema. VITAL SIGNS: Her heart rate was 63, blood pressure was 137/95, temperature was 97.6, respiratory rate was 24, and oxygen saturation was 97% on 2 liters of oxygen, her oxygen saturation was 90-91 on room air. HEAD, EYES, EARS, NOSE AND THROAT: Showed normocephalic, atraumatic. NECK: Supple. HEART: Showed normal first and second heart sounds. No gallop, rub or murmur. CHEST: Clear to auscultation. No crepitation or rhonchi. ABDOMEN: Distended, soft, nontender. NEUROLOGIC: She was awake, alert, responding appropriately. All her cranial nerves intact. EXTREMITIES: She moves extremities without difficulty. She ambulates with a walker. LABORATORY DATA: Showed that her serum sodium was 132, potassium 4, chloride 94, bicarbonate 26, anion gap of 12, BUN 29, creatinine 1.6, estimated GFR was 52 mL per minute. Her glucose was 700 and this morning blood sugar was 245, calcium was 8.2. Total bilirubin, AST, ALT, alkaline phosphatase were normal. DISCHARGE MEDICATIONS: The patient was discharged home to continue on aspirin 81 mg once a day, diphenhydramine 25 mg at bedtime, fluoxetine 60 mg daily, Advair Diskus 250/50 one puff twice a day, furosemide 40 mg daily, gabapentin 300 mg at bedtime, NPH insulin 70/30, she takes 10 units in the morning and 15-20 units at bedtime, ketoconazole cream apply topically daily, levothyroxine sodium 125 mcg once a day, melatonin 3 mg p.o. at bedtime. She is also on meloxicam 15 mg p.o. daily, metoprolol tartrate 100 mg twice a day, phentermine 37.5 mg daily, simvastatin 80 mg at bedtime, sitagliptin phosphate 52/500 one tablet daily. DISCHARGE DIAGNOSES: 1. Acute on chronic hypoxic respiratory failure. 2. Acute on chronic diastolic congestive heart failure. 3. Chronic obstructive pulmonary disease exacerbation. 4. Coronary artery disease, status post percutaneous coronary intervention with stent deployment, patient is chest pain free. 5. Accelerated hypertension, much improved. 6. Hyperlipidemia. 7. Type 2 diabetes mellitus, reasonably controlled. 8. Hypothyroidism. SOFIA ROSE MD DR: JENNIFER/lincoln JOB#: [id number] / [id number]
== END 2020-12-28 15:45 | disposition home or self-care (01) | DRG 291 ==
LOC: ER 19:30 → 1 SOUTH 21:30
PROVIDERS: ADMIT Internal Medicine; ATTEND Internal Medicine
DX: I11.0 Hypertensive heart disease with heart failure (principal); J96.21 Acute and chronic respiratory failure with hypoxia; J44.1 Chronic obstructive pulmonary disease with (acute) exacerbation; D72.829 Elevated white blood cell count, unspecified; I50.33 Acute on chronic diastolic (congestive) heart failure; E03.9 Hypothyroidism, unspecified; E11.65 Type 2 diabetes mellitus with hyperglycemia; E78.00 Pure hypercholesterolemia, unspecified; E78.5 Hyperlipidemia, unspecified; G47.00 Insomnia, unspecified; I25.10 Atherosclerotic heart disease of native coronary artery without angina pectoris; M15.9 Polyosteoarthritis, unspecified; E66.01 Morbid (severe) obesity due to excess calories; F41.9 Anxiety disorder, unspecified; G47.33 Obstructive sleep apnea (adult) (pediatric); Z20.822 Contact with and (suspected) exposure to COVID-19; Z80.0 Family history of malignant neoplasm of digestive organs; Z80.1 Family history of malignant neoplasm of trachea, bronchus and lung; Z80.3 Family history of malignant neoplasm of breast; Z80.8 Family history of malignant neoplasm of other organs or systems; Z82.49 Family history of ischemic heart disease and other diseases of the circulatory system; Z87.891 Personal history of nicotine dependence; Z90.49 Acquired absence of other specified parts of digestive tract; Z95.5 Presence of coronary angioplasty implant and graft
CPT/HCPCS: 36415; 36600; 71045; 80048; 80053; 80061; 80076; 81001; 82550; 82803; 82947; 83690; 83735; 83880; 84443; 84484; 85025; 85379; 85610; 85730; 86140; 87040; 93005; 94640; 96374; 96375; J1650; J1815; J1940; J2930; J7120; U0003; 97116; 97535; 99285-25

== ENCOUNTER 2021-10-10 10:02 | Inpatient (IN) | payer MEDICARE, OTHER ==
[~2021-10-10] VITALS: Ht 152.4 cm; Wt 98.7 kg
[~2021-10-10 10:02] MED LIST: ASPI-630 PO; DIPH25CA58 PO; FLUO60TA PO; FLUT1DIS3 IH; FURO40TA4 PO; GABA-586 PO; INSU100I41 SQ; KETO15CR2 TP; LEVO125T5 PO; MELA3TAB30 PO; MELO15TA23 PO; METO100T7 PO; PHEN37.53 PO; SIMV80TA17 PO; SITA1TAB7 PO
--- NOTE | 2021-10-10 10:37 | PHYS DOC ---
Past History Past Medical History: Anxiety, Arthritis, CAD, COPD, Diabetes, High Cholesterol, Heart Disease, Hypertension Past Surgical History: Cholecystectomy, Tubal ligation Additional Past Surgical Histo: Cardiac stent, hernia repair Alcohol Use: None Adult General Chief Complaint Chief Complaint: SHORTNESS OF BREATH [facility] HPI Patient is a 66-year-old female presenting for shortness of breath. This is an acute on chronic issue. Patient is accompanied by son at bedside who assists with history. States that for the past 4 weeks she has been increasingly more short of breath without any known sick contact, travel, ingestion or change in medication. Patient has been trying to use her prescribed DuoNeb and albuterol rescue inhaler without significant relief in symptoms. Physical exertion makes worse. Patient reports over the last month she has had no weight gain but admits that laying flat and ambulating, specifically walking up stairs has been more difficult than usual. Denies any chest pain or URI symptoms, just presents today with increased shortness of breath and wheezing past baseline. She admits she has had constant sputum production which is normal for her without any change in production or purulence. She is fully vaccinated against COVID-19 Review of Systems Review of Systems Fourteen body systems of review of systems have been reviewed. See HPI for pertinent positives and negative responses, other avendaño all other systems are negative, non-pertinent or non-contributory Allergies Allergies Allergies Coded Allergies Type Severity Reaction Last Updated Verified No Known Allergies Allergy Unknown 12/26/20 Yes Physical Exam Physical Exam Constitutional: Well developed, well nourished, no acute distress, non-toxic appearance. HENT: Normocephalic, atraumatic, bilateral external ears normal, oropharynx moist, no oral exudates, nose normal. Eyes: PERRLA, EOMI, conjunctiva normal, no discharge. Neck: Normal range of motion, no tenderness, supple, no stridor. Cardiovascular: Heart rate regular, sinus rhythm, no murmurs rubs or gallops Lungs & Thorax: Increased work of breathing speaking in few word sentences only, bibasilar rales present Abdomen: Bowel sounds normal, soft, no tenderness, no masses, no pulsatile masses. Nonsurgical abdomen, no peritoneal signs Skin: Warm, dry, no erythema, no rash. Back: No tenderness, no CVA tenderness. Extremities: No tenderness, no cyanosis, no clubbing, ROM intact, no edema. Neurologic: Alert and oriented X 3, grossly normal motor & sensory function, no focal deficits noted. Psychologic: Anxious affect and mood Current Patient Data Vital Signs Vital Signs Date Time Temp Pulse Resp B/P (MAP) Pulse Ox O2 Delivery O2 Flow Rate FiO2 10/10/21 10:12 97.5 90 24 166/107 (126) 88 Room Air Lab Results Laboratory Tests Test 10/10/21 10:50 White Blood Count 11.7 x10^3/uL Red Blood Count 4.79 x10^6/uL Hemoglobin 12.5 g/dL Hematocrit 40.7 % Mean Corpuscular Volume 85 fL Mean Corpuscular Hemoglobin 26 pg Mean Corpuscular Hemoglobin Concent 31 g/dL Red Cell Distribution Width 16.6 % Platelet Count 208 x10^3/uL Neutrophils (%) (Auto) 81 % Lymphocytes (%) (Auto) 12 % Monocytes (%) (Auto) 4 % Eosinophils (%) (Auto) 3 % Basophils (%) (Auto) 1 % Neutrophils # (Auto) 9.4 x10^3uL Lymphocytes # (Auto) 1.4 x10^3/uL Monocytes # (Auto) 0.5 x10^3/uL Eosinophils # (Auto) 0.3 x10^3/uL Basophils # (Auto) 0.1 x10^3/uL Sodium Level 141 mmol/L Potassium Level 4.3 mmol/L Chloride Level 106 mmol/L Carbon Dioxide Level 25 mmol/L Anion Gap 10 Blood Urea Nitrogen 19 mg/dL Creatinine 1.1 mg/dL Estimated GFR (Cockcroft-Gault) 49.4 Glucose Level 138 mg/dL Calcium Level 8.6 mg/dL Troponin I High Sensitivity 38 ng/L XR-Pxm-O-Type Natriuretic Peptide 40391 pg/mL SARS-CoV-2 Antigen (Rapid) Negative Current Medications Medications (Trade) Dose Ordered Sig/Alex Route PRN Reason Start Time Stop Time Status Last Admin Dose Admin Furosemide (Lasix) 40 mg 1X ONCE IVP 10/10/21 11:00 10/10/21 11:01 Cancel Nitroglycerin (Nitrostat) 0.4 mg PRN Q5MIN PRN SL CHEST PAIN 10/10/21 11:00 Furosemide (Lasix) 100 mg 1X ONCE IVP 10/10/21 11:15 10/10/21 11:16 DC EKG EKG EKG ordered and interpreted by myself at 1041 hrs. sinus rhythm at 78 bpm, QTC 487 otherwise unremarkable intervals, left axis deviation, T wave inversion noted in lead I otherwise no obvious ischemic findings, no STEMI Prior EKG obtained December 2020 use for comparison, reported T wave inversion above is a new finding Radiology/Procedures Radiology/Procedures INDICATION: Reason: shob / Spl. Instructions: / History: COMPARISON: December 26, 2020 FINDINGS: Single view of chest obtained. Enlarged cardiomediastinal silhouette. Focal opacities at the lung bases with some mild haziness throughout the bilateral lungs IMPRESSION: * Focal opacities at lung bases which could be from atelectasis or infiltrate. * There is also some interstitial and groundglass opacities bilaterally which could be from edema or infiltrate. * Enlarged cardiomediastinal silhouette. Electronically signed by: Peter Dolan MD (10/10/2021 11:06 AM) [id number] Heart Score C/O Chest Pain: No HEART Score for Chest Pain: HEART Score for Chest Pain Response (Comments) Value History Slighlty/Non-Suspicious 0 ECG Nonspecific Repolarizatio 1 Age > 65 2 Risk Factors >3 Risk Factors or Hx CAD 2 Troponin < Normal Limit 0 Total 5 Risk Factors: Risk Factors: DM, Current or recent (<one month) smoker, HTN, HLP, family history of CAD, obesity. Risk Scores: Risk Factors: DM, Current or recent (<one month) smoker, HTN, HLP, family history of CAD, obesity. Course & Med Decision Making Course & Med Decision Making Airway patent, increased work of breathing, IV access and vitals obtained concerning for tachypnea and and hypoxia on room air HPI physical exam and comprehensive ER work-up obtained concerning for fluid overload in a patient with heart failure. Her last ejection fraction via echocardiogram is unknown. Patient does admit she has been drinking more water than usual I disclosed given complexity of case my concern for COPD versus heart failure exacerbation, given history and physical examination patient's picture more consistent with fluid overload. As such, supplemental oxygen via nasal cannula, IV diuresis and repositioning improved patient's respiratory effort and symptoms. Still, she is high risk for discharge home and is not from local area with poor access to PCP follow-up for close outpatient management of fluid overload I contacted hospitalist and patient accepted under the care of Dr. Varela for continued inpatient medical management. Patient admits she is full CODE STATUS at time of admission Dragon Disclaimer Dragon Disclaimer This electronic medical record was generated, in whole or in part, using a voice recognition dictation system. Departure Departure: Impression: Primary Impression: Acute on chronic diastolic CHF (congestive heart failure) Disposition: ADMITTED INPATIENT Admitting Physician: Dat Varela Condition: STABLE Referrals: PCP,CORI (PCP) ALMAZ DERAS DO Oct 10, 2021 10:37
--- NOTE | 2021-10-10 10:45 | EKG ---
[address] [address] Test Date: 2021-10-10 Test Time: 10:37:45 Pat Name: ANDREW TRACY Department: Room: Gender: F Supervisor Case Loading: ZEKE : 1955 Requested By: ALMAZ DERAS Order Number: [id number] Reading MD: Wesley Pisano Measurements Intervals [place] Rate: 78 P: 36 NC: 152 QRS: -4 QRSD: 78 T: 139 QT: 424 QTc: 487 Interpretive Statements SINUS RHYTHM LEFTWARD AXIS QRS(T) CONTOUR ABNORMALITY CONSISTENT WITH ANTEROSEPTAL INFARCT AGE UNDETERMINED T ABNORMALITY IN ANTERIOR LEADS LATERAL LEADS ABNORMAL ECG Electronically Signed On 10-10-2021 14:23:56 TECHNICAL PROGRAMS MANAGER by Wesley Pisano
[2021-10-10] MEDS ORDERED: NITROGLYCERIN SUBLINGUAL 0.4 MG BOTTLE OF 25. SL PRN ×2 (11:00→12:15)
[2021-10-10] MEDS ORDERED: FUROSEMIDE 40 MG/4 ML VIAL IVP ONE (11:00)
[2021-10-10 11:07] LABS: BASO # 0.1 x10^3/uL (0.0-0.2); BASO % 1 % (0-3); EOS # 0.3 x10^3/uL (0.0-0.7); EOS % 3 % (0-3); HEMATOCRIT 40.7 % (36.0-47.0); HEMOGLOBIN 12.5 g/dL (12.0-15.5); LYMPH # 1.4 x10^3/uL (1.0-4.8); LYMPH % 12 % (24-48); MEAN CORPUSCULAR HEMOGLOBIN 26 pg (25-35); MEAN CORPUSCULAR HGB CONC 31 g/dL (31-37); MEAN CORPUSCULAR VOLUME 85 fL (79-100); MONO # 0.5 x10^3/uL (0.0-1.1); MONO % 4 % (0-9); NEUT # 9.4 x10^3uL (1.8-7.7); NEUT % 81 % (31-73); PLATELET COUNT 208 x10^3/uL (140-400); RED BLOOD COUNT 4.79 x10^6/uL (3.50-5.40); RED CELL DISTRIBUTION WIDTH 16.6 % (11.5-14.5); WHITE BLOOD COUNT 11.7 x10^3/uL (4.0-11.0)
--- NOTE | 2021-10-10 11:08 | RAD ---
INDICATION: Reason: shob / Spl. Instructions: / History: COMPARISON: December 26, 2020 FINDINGS: Single view of chest obtained. Enlarged cardiomediastinal silhouette. Focal opacities at the lung bases with some mild haziness thro ughout the bilateral lungs IMPRESSION: * Focal opacities at lung bases which could be from atelectasis or infiltrate. * There is also some interstitial and groundglass opacities bilaterally which could be from edema or infiltrate. * Enlarged cardiomediastinal silhouette. Electronically signed by: Peter Dolan MD (10/10/2021 11:06 AM) [id number]
[2021-10-10 11:14] LABS: CALCIUM 8.6 mg/dL (8.5-10.1); CREATININE 1.1 mg/dL (0.6-1.0); GFR 49.4; POTASSIUM 4.3 mmol/L (3.5-5.1)
[2021-10-10] MEDS ORDERED: FUROSEMIDE 100 MG/10 ML VIAL IVP ONE (11:15)
[2021-10-10] MEDS ORDERED: ACETAMINOPHEN 325 MG TABLET PO PRN (12:15)
--- NOTE | 2021-10-10 12:28 | HP ---
DATE OF SERVICE: 10/10/2021 ADMIT DATE: 10/10/2021 ATTENDING PHYSICIAN: Dr. Varela. CHIEF COMPLAINT: Shortness of breath. HISTORY OF PRESENT ILLNESS: The patient is a 66-year-old female who lives in [place], [place]. She is here visiting her son. She developed new onset of shortness of breath over the last several days. In the ED, she had an extensive workup. She complained about significant dyspnea with exertion and 4 pillow orthopnea. Chest x-ray showed vascular congestion, bilateral pleural effusions. She has no COVID exposure. She is admitted then with an exacerbation of congestive heart failure. She also takes scheduled meloxicam and due to her recent travel, she is retaining fluid causing her decompensation. She had a fairly nonischemic workup 4 months ago at [facility]. At that time, she describes a nonischemic nuclear medicine stress test. She had an echocardiogram 1 year ago. She does not know details. PAST MEDICAL HISTORY: Significant for insulin-dependent diabetes, obesity, hypertension, hypothyroidism and hyperlipidemia. CURRENT MEDICATIONS: At home include aspirin, Benadryl, Prozac 60 mg daily, Advair Diskus, Lasix 40 mg daily, Neurontin, insulin NPH, ketaconazole cream, Synthroid, melatonin, metoprolol, phentermine, Zocor, Januvia, and metformin. ALLERGIES: She has no known drug allergies. SOCIAL HISTORY: She is a nonsmoker and nondrinker. FAMILY HISTORY: Her father at age 50 of complications of stomach cancer. He was a heavy drinker. Her mom at age 61 lung cancer. She had been a heavy smoker. REVIEW OF SYSTEMS: ____ recent travel. She has degenerative arthritis. She has 4 pillow orthopnea. No recent COVID exposure. No nausea. Appetite has been fair. All other systems reviewed and turned to be negative. PHYSICAL EXAMINATION: GENERAL: When I saw her, this is a very pleasant, middle-aged female. INITIAL VITAL SIGNS: Showed a blood pressure of 166/107, pulse is 90 and regular. She is afebrile. Oxygen saturation 88% on room air. Supplemental oxygen was added. HEENT: Head is without trauma. Pupils are reactive. Sclerae nonicteric. Oropharynx clear. NECK: Supple, no bruits or stridor. LUNGS: Otherwise clear. There are decreased breath sounds at the bases with minimal crackles. CARDIOVASCULAR: Showed distant heart tones. No obvious gallops. ABDOMEN: Obese, protuberant. No organomegaly. Bowel sounds were hypoactive. EXTREMITIES: Showed 2+ edema. NEUROLOGIC: Focally intact. Speech is fluent. SKIN: Otherwise, warm and dry. IMAGING: Chest x-ray as noted. LABORATORY STUDIES: On admission, hemoglobin was 12.5 g/dL with a white count 11,700. Electrolytes showed a sodium 141 mEq, potassium 4.3 mEq, creatinine is 1.1 mg/dL. Troponin was 38 and within range. Nonfasting blood sugar 138. Her rapid COVID screen was negative. Chest x-ray as noted. ASSESSMENT: 1. A 66-year-old female with acute on chronic congestive heart failure, most likely diastolic in nature. 2. Volume overload, aggravated by nonsteroidal anti-inflammatory drugs. 3. Morbid obesity. 4. Type 2 diabetes. 5. Hypothyroidism, on replacement. 6. Essential hypertension. PLAN: 1. Admit to the inpatient unit. 2. Diuresis. 3. Daily weights, I and O's. 4. Serial chemistries. 5. Continue home meds. GINNA/MISTI/STUART DR: GINNA/lincoln TID: [id number]
[2021-10-10 18:15] VITALS: BP 143/79
[2021-10-10] MEDS: FUROSEMIDE 100 MG/10 ML VIAL IVP SCH (20:35)
[2021-10-10] MEDS: POTASSIUM CHLORIDE 20 MEQ TABLET.ER. PO SCH (20:36)
[2021-10-10] MEDS: METOPROLOL TART IMMED RELEASE 50 MG TABLET PO SCH (20:36)
[2021-10-10] MEDS: TEMAZEPAM 15 MG CAPSULE PO PRN (20:36)
[2021-10-10] MEDS: MELATONIN 3 MG TABLET PO SCH (20:36)
[2021-10-10] MEDS ORDERED: NON FORMULARY ITEM (Fluticasone/Salmeterol (Advair 250-50 Diskus) 1 PUFF) IH SCH (21:00)
[2021-10-10] MEDS ORDERED: FUROSEMIDE 40 MG/4 ML VIAL IVP SCH (21:00)
[2021-10-10 21:10] VITALS: BP 120/76
[2021-10-11 00:35] VITALS: BP 103/62
[2021-10-11 05:55] VITALS: BP 93/60
[2021-10-11] MEDS: LEVOTHYROXINE 125 MCG TABLET PO SCH (05:58)
[2021-10-11 06:11] LABS: BASO # 0.2 x10^3/uL (0.0-0.2); BASO % 1 % (0-3); EOS # 0.5 x10^3/uL (0.0-0.7); EOS % 4 % (0-3); HEMATOCRIT 42.5 % (36.0-47.0); LYMPH # 2.2 x10^3/uL (1.0-4.8); LYMPH % 18 % (24-48); MEAN CORPUSCULAR HEMOGLOBIN 26 pg (25-35); MEAN CORPUSCULAR HGB CONC 31 g/dL (31-37); MEAN CORPUSCULAR VOLUME 85 fL (79-100); MONO # 0.7 x10^3/uL (0.0-1.1); MONO % 6 % (0-9); NEUT # 8.4 x10^3uL (1.8-7.7); NEUT % 71 % (31-73); PLATELET COUNT 220 x10^3/uL (140-400); RED BLOOD COUNT 5.03 x10^6/uL (3.50-5.40); RED CELL DISTRIBUTION WIDTH 16.1 % (11.5-14.5); WHITE BLOOD COUNT 11.9 x10^3/uL (4.0-11.0)
[2021-10-11 06:22] LABS: CALCIUM 8.2 mg/dL (8.5-10.1); CREATININE 1.3 mg/dL (0.6-1.0); GFR 40.7; POTASSIUM 3.6 mmol/L (3.5-5.1)
[2021-10-11] MEDS: FLUTICASONE/VILANTEROL 200/25 INHALER. INH SCH (07:58)
[2021-10-11] MEDS: INSULIN NPH/REG HUM 70/30 300 UNITS/3 ML VIAL. SQ SCH (07:58)
[2021-10-11] MEDS: FUROSEMIDE 100 MG/10 ML VIAL IVP SCH ×2 (07:59→15:16)
[2021-10-11] MEDS: ASPIRIN CHEWABLE 81 MG TABLET. PO SCH (08:00)
[2021-10-11] MEDS: SIMVASTATIN 40 MG TABLET. PO SCH (08:00)
[2021-10-11] MEDS: POTASSIUM CHLORIDE 20 MEQ TABLET.ER. PO SCH ×2 (08:00→20:31)
[2021-10-11] MEDS: KETOCONAZOLE 2% TOPICAL CREAM 30GM TUBE. TP SCH (08:01)
[2021-10-11] MEDS ORDERED: MAGNESIUM SULFATE 1GM 100 ML IV ONE (08:15)
--- NOTE | 2021-10-11 08:46 | PN ---
DATE: 10/11/2021 ATTENDING PHYSICIAN: Dr. Varela. SUBJECTIVE: Breathing better. She still has a little bit of exertional dyspnea when walking to the bathroom. Otherwise, she has been urinating well and is feeling better. She has no new complaints. OBJECTIVE FINDINGS: VITAL SIGNS: Blood pressure this morning is 103/62, her pulse is 65 and regular. She is afebrile. Oxygen saturation 94% on 2 liters by nasal cannula. HEENT: Head is without trauma. Pupils are reactive. Sclerae nonicteric. The oropharynx is clear. NECK: Supple, no bruits identified. LUNGS: Clear with good breath sounds. CARDIOVASCULAR: Showed regular heart tones. No gallops. ABDOMEN: Soft. EXTREMITIES: Show trace edema. NEUROLOGIC: Focally intact. No deficits. PERTINENT LABORATORY STUDIES: Creatinine is up slightly from 1.1-1.3 mg/dL. Her nonfasting blood sugar is 195. Her sodium is 142 mEq per liter, potassium 3.6 mEq per liter. Her BNP yesterday was __. ASSESSMENT: 1. Acute on chronic congestive heart failure, most likely diastolic in nature. 2. Volume overload due to indiscretion and fluid retention. 3. Morbid obesity. 4. Type 2 diabetes mellitus. 5. Hypothyroidism, on replacement. 6. Essential hypertension. PLAN: 1. Continue diuretic therapy with Lasix intravenously. 2. Daily weights. 3. Fluid restriction. 4. Potassium and magnesium supplementation. 5. Serial chemistries. She is doing so well. We are trying to wean her off of the oxygen. We will check her room air saturation. Tentative discharge plans for as early as tomorrow. CLIFF DR: Filiberto TID: [id number]
[2021-10-11] MEDS: METOPROLOL TART IMMED RELEASE 50 MG TABLET PO SCH ×3 (09:00→22:54)
[2021-10-11 10:00] VITALS: BP 124/77
[2021-10-11 16:38] VITALS: BP 132/78
[2021-10-11] MEDS ORDERED: SITAGLIPTIN PHOS PO SCH (17:00)
[2021-10-11] MEDS ORDERED: METFORMIN HCL PO SCH (17:00)
[2021-10-11] MEDS ORDERED: INSULIN NPH/REG HUM 70/30 300 UNITS/3 ML VIAL. SQ SCH (17:00)
[2021-10-11] MEDS ORDERED: metFORMIN XR 500 MG TAB.ER.24H PO SCH (17:00)
[2021-10-11] MEDS ORDERED: LINAGLIPTIN 5 MG TABLET PO SCH (17:00)
[2021-10-11 19:30] VITALS: BP 109/73
[2021-10-11] MEDS: TEMAZEPAM 15 MG CAPSULE PO PRN (20:31)
[2021-10-11] MEDS: MELATONIN 3 MG TABLET PO SCH (20:32)
[2021-10-11 22:47] VITALS: BP 88/61
[2021-10-12 02:56] VITALS: BP 116/70
[2021-10-12] MEDS: LEVOTHYROXINE 125 MCG TABLET PO SCH (06:01)
[2021-10-12 06:30] VITALS: BP 108/69
[2021-10-12 07:22] LABS: CALCIUM 8.2 mg/dL (8.5-10.1); CREATININE 1.5 mg/dL (0.6-1.0); GFR 34.5; POTASSIUM 3.7 mmol/L (3.5-5.1)
[2021-10-12] MEDS: POTASSIUM CHLORIDE 20 MEQ TABLET.ER. PO SCH (08:39)
[2021-10-12] MEDS: ASPIRIN CHEWABLE 81 MG TABLET. PO SCH (08:39)
[2021-10-12] MEDS: SIMVASTATIN 40 MG TABLET. PO SCH (08:39)
[2021-10-12] MEDS: FUROSEMIDE 100 MG/10 ML VIAL IVP SCH (08:40)
[2021-10-12] MEDS: KETOCONAZOLE 2% TOPICAL CREAM 30GM TUBE. TP SCH (08:41)
[2021-10-12] MEDS: FLUTICASONE/VILANTEROL 200/25 INHALER. INH SCH (08:41)
[2021-10-12] MEDS: INSULIN NPH/REG HUM 70/30 300 UNITS/3 ML VIAL. SQ SCH (08:45)
[2021-10-12 09:00] VITALS: BP 108/69
[2021-10-12] MEDS: METOPROLOL TART IMMED RELEASE 50 MG TABLET PO SCH (09:00)
--- NOTE | 2021-10-12 09:02 | DS ---
DATE OF DISCHARGE: 10/12/2021 ATTENDING PHYSICIAN: Dr. Varela. FINAL DISCHARGE DIAGNOSES: 1. Acute on chronic congestive heart failure, most likely diastolic in nature. 2. Morbid obesity. 3. Volume overload due to dietary indiscretion. 4. Type 2 diabetes mellitus. 5. Hypothyroidism, on replacement. 6. Essential hypertension. HISTORY AND PHYSICAL: The patient is a 66-year-old female who lives in [place]. She was here visiting her son. She was admitted with increasing shortness of breath, orthopnea and evidence of congestive heart failure. Her COVID swab was negative. PHYSICAL EXAMINATION: Please see the dictated note. PERTINENT LABORATORY AND X-RAY STUDIES: On admission, her hemoglobin was 12.5 g/dL with a white count 11,700. Her chemistry panel showed a sodium of 142 mEq, potassium 3.6 mEq, creatinine is 1.3 mg percent with a BUN of 21 mg/dL. Nonfasting blood sugar 221. BNP was markedly elevated at 16,768. Cardiac enzymes negative for coronary ischemia. COURSE IN THE HOSPITAL: The patient was admitted. She was started on diuresis. She had been on Lasix. We initiated Lasix at a higher dose to 80 mg intravenously b.i.d. In addition, I ordered daily weights, fluid restriction, strict I's and O's and potassium and magnesium replacement. Serial chemistries were drawn. Her creatinine was stable. By the third hospital day, her weight had come down significantly. Her orthopnea resolved. She had a good night's sleep and her lungs were clear. The chest x-ray on admission showed cardiomegaly and vascular congestion. On the third hospital day, she was discharged home with an increase in her Lasix to 80 mg p.o. q.a.m., K-Dur 20 mEq p.o. daily and continuation of her other home meds including aspirin 81 mg daily, Benadryl p.r.n., Prozac 60 mg daily, fluticasone daily, insulin regular and Lantus as scheduled, ketoconazole cream, Synthroid 125 mcg daily, melatonin at bedtime, metoprolol 100 mg b.i.d., phentermine, Zocor 80 mg daily, Januvia and metformin one daily. For now, I held her Neurontin because of dry mouth and increased thirst. I suggested to her that she weigh herself every day and record the weights and try to keep within a range of plus or minus 1 pound from her dry weight. Whether or not she will do this remains to be seen. I suggested she follow up with her primary care physician in [place], [place] in 2 weeks' time. She will go home and make the appointment. The patient was then discharged from our hospital in stable condition with explicit drug and followup care. Total discharge time spent [address]: Filiberto TID: [id number]
== END 2021-10-12 11:05 | disposition home or self-care (01) | DRG 291 ==
LOC: ER 10:02 → ER HOLD 12:04 → 1 SOUTH 17:06
PROVIDERS: ADMIT Hospitalist; ATTEND Hospitalist
DX: I11.0 Hypertensive heart disease with heart failure (principal); I50.33 Acute on chronic diastolic (congestive) heart failure; Z68.41 Body mass index [BMI] 40.0-44.9, adult; I25.10 Atherosclerotic heart disease of native coronary artery without angina pectoris; J44.9 Chronic obstructive pulmonary disease, unspecified; Z20.822 Contact with and (suspected) exposure to COVID-19; E78.5 Hyperlipidemia, unspecified; E78.00 Pure hypercholesterolemia, unspecified; E66.01 Morbid (severe) obesity due to excess calories; E11.9 Type 2 diabetes mellitus without complications; E03.9 Hypothyroidism, unspecified; F41.9 Anxiety disorder, unspecified; M19.90 Unspecified osteoarthritis, unspecified site; Z79.4 Long term (current) use of insulin; Z79.82 Long term (current) use of aspirin; Z79.899 Other long term (current) drug therapy; Z80.0 Family history of malignant neoplasm of digestive organs; Z80.1 Family history of malignant neoplasm of trachea, bronchus and lung; Z95.5 Presence of coronary angioplasty implant and graft; Z90.49 Acquired absence of other specified parts of digestive tract; Z98.51 Tubal ligation status
CPT/HCPCS: 36415; 71045; 80048; 82947; 83880; 84484; 85025; 87426; 93005; 96374; J1815; J3475; U0003; 99285-25

== ENCOUNTER → 2022-02-03 | Outpatient (CLI) | payer MEDICARE, OTHER ==
[2022-02-03 14:53] LABS: ALBUMIN 3.1 g/dL (3.4-5.0); ALBUMIN/GLOBULIN RATIO 0.8 (1.0-1.7); CALCIUM 8.7 mg/dL (8.5-10.1); CREATININE 1.7 mg/dL (0.6-1.0); DIRECT BILIRUBIN 0.1 mg/dL (0.0-0.2); GFR 29.9; POTASSIUM 3.3 mmol/L (3.5-5.1); TOTAL BILIRUBIN 0.6 mg/dL (0.2-1.0); TOTAL PROTEIN 7.1 g/dL (6.4-8.2)
[2022-02-04 01:25] LABS: HEMOGLOBIN A1C 8.4 % (4.8-5.6)
[2022-02-04 21:08] LABS: CHOLESTEROL/HDL RATIO 2.1
== END ==
LOC: LAB 13:19
PROVIDERS: ATTEND Internal Medicine Cardiovascular Disease
DX: E11.65 Type 2 diabetes mellitus with hyperglycemia (principal); I10 Essential (primary) hypertension; I25.10 Atherosclerotic heart disease of native coronary artery without angina pectoris; R06.02 Shortness of breath; E78.2 Mixed hyperlipidemia
CPT/HCPCS: 36415; 80053; 80061; 80076; 83036; 83695; 83880

== ENCOUNTER → 2022-02-03 | Outpatient (CLI) | payer MEDICARE, OTHER ==
--- NOTE | 2022-02-03 13:45 | RAD ---
Two-view chest dated 02/03/2022 1:42 PM Comparison: 10/10/2021 CLINICAL INDICATION: Cough and shortness of breath for one month FINDINGS: PA and lateral views obtained. Heart and mediastinal contours are stable. Lungs are clear. No consoli dation or pleural effusion. No pneumothorax. IMPRESSION: No acute radiographic abnormality. Electronically signed by: Luis Alberto Schafer MD (02/03/2022 1:42 PM) MILENA
== END ==
LOC: RAD 12:57
PROVIDERS: ATTEND Nurse Practitioner Family
DX: R05.9 Cough, unspecified (principal); R06.02 Shortness of breath
CPT/HCPCS: 71046

== ENCOUNTER → 2022-02-24 | Outpatient (CLI) | payer MEDICARE, OTHER ==
[2022-02-24 15:49] LABS: CALCIUM 8.9 mg/dL (8.5-10.1); CREATININE 1.6 mg/dL (0.6-1.0); GFR 32.1; POTASSIUM 4.5 mmol/L (3.5-5.1)
== END ==
LOC: LAB 14:46
PROVIDERS: ATTEND Internal Medicine Cardiovascular Disease
DX: I10 Essential (primary) hypertension (principal)
CPT/HCPCS: 36415; 80048